=== PATIENT | male | born 1975 | race Caucasian/White ===

== ENCOUNTER → 2017-07-12 | Day surgery (SDC) | payer BC ==
[2017-06-28 15:29] VITALS: Ht 175.3 cm; Wt 78.6 kg
[~2017-07-12] VITALS: Ht 175.3 cm; Wt 78.6 kg
[~2017-07-12] MED LIST: CALC600T9 PO; LIDOCAINE HCL 2% 2 ML VIAL (20MG/ML) ONE; METHYLENE BLUE 0.5% 10 ML VIAL ONE; MIDAZOLAM HCL 1 MG/ML 2ML VIAL ONE; PRED-301 PO; PRLSR20 PO; PROP10TA7 PO; PROPOFOL IV EMULSION 10 MG/ML 20 ML VIAL IV ONE; SODIUM CHLORIDE 0.9% 500ML 500 ML IV ONE; VEDO1INJ IV
[2017-07-12 13:52] VITALS: TEMP 37
--- NOTE | 2017-07-12 14:25 | Endo History and Physical ---
History & Physical Date of Service: Jul 12, 2017. Chief Complaint: COLON POLYPS, W/EMR Referring Physician: DR. 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 Past Surgical History Hx Cardiac Surgery: No Hx Internal Defibrillator: No Hx Pacemaker: No Hx Abdominal Surgery: No Hx of Implantable Prosthesis: No Hx Post-Op Nausea and Vomiting: No Hx Cancer Surgery: No Hx Thoracic Surgery: Yes (BRONCHOSCOPY) Hx Orthopedic: Yes (RT HAND PINKY FINGER WITH PIN) Hx Urinary Tract Surgery: No Family History None Social History Smoking Status: Former Smoker Hx Substance Use: No Hx Alcohol Use: Yes (2-4 DRINKS 4-5 DAYS/WEEK (ONLY 3 DRINKS SINCE )) Allergies Coded Allergies: No Known Allergies (Verified , 07/12/17) Current Medications Reported Home Medications Medications Dose Route/Sig Max Daily Dose Days Date Category Inderal (Propranolol HCl) 10 Mg Tab 10 Mg PO BID 06/28/17 Reported Prilosec (Omeprazole) 20 Mg Capcr 20 Mg PO BID 06/28/17 Reported Prednisone 5 Mg Tab 5 Mg PO QAM 06/28/17 Reported Calcium + D (Calcium Carbonate-Vitamin D) 1 Tab Tab 1 Tab PO QPM 06/28/17 Reported Calcium + D (Calcium Carbonate-Vitamin D) 1 Tab Tab 2 Tabs PO QAM 06/28/17 Reported Entyvio (Vedolizumab) 300 Mg Inj 1 Dose IV Q8WK 06/28/17 Reported Vital Signs Weight (Kilograms): 78.64 Height (Feet): 5 Height (Inches): 9 Date Time Temp Pulse Resp B/P (MAP) Pulse Ox O2 Delivery O2 Flow Rate FiO2 07/12/17 13:52 37.0 72 18 128/77 (94) 96 Room Air Physical Exam General Appearance: WD/WN, no apparent distress Respiratory/Chest: Auscultation: breath sounds normal Cardiovascular: Heart Auscultation: RRR Abdomen: Bowel Sounds: normal Inspection & Palpation: soft, non-distended, no tenderness, guarding & rebound colonscopy with possible EMR risks benefits and alternatives discussed with patient. Risk approximately 1: 500 for bleeding perforation alfredo Assessment and Plan colonscopy - possible EMR
--- NOTE | 2017-07-12 15:25 | Discharge Instructions ---
Endoscopy Patient Instructions Date / Procedure(s) Performed Jul 12, 2017. Colonoscopy Allergy Information Coded Allergies: No Known Allergies (Verified , 07/12/17) Discharge Date / Findings Jul 12, 2017. EMR on descending colon polyp other polyps were removed Medication Instructions Restart Stopped Medication(s): Reported Home Medications Medications Dose Route/Sig Max Daily Dose Days Date Category Inderal (Propranolol HCl) 10 Mg Tab 10 Mg PO BID 06/28/17 Reported Prilosec (Omeprazole) 20 Mg Capcr 20 Mg PO BID 06/28/17 Reported Prednisone 5 Mg Tab 5 Mg PO QAM 06/28/17 Reported Calcium + D (Calcium Carbonate-Vitamin D) 1 Tab Tab 1 Tab PO QPM 06/28/17 Reported Calcium + D (Calcium Carbonate-Vitamin D) 1 Tab Tab 2 Tabs PO QAM 06/28/17 Reported Entyvio (Vedolizumab) 300 Mg Inj 1 Dose IV Q8WK 06/28/17 Reported Reported Home Medications Medications Dose Route/Sig Max Daily Dose Days Date Category Inderal (Propranolol HCl) 10 Mg Tab 10 Mg PO BID 06/28/17 Reported Prilosec (Omeprazole) 20 Mg Capcr 20 Mg PO BID 06/28/17 Reported Prednisone 5 Mg Tab 5 Mg PO QAM 06/28/17 Reported Calcium + D (Calcium Carbonate-Vitamin D) 1 Tab Tab 1 Tab PO QPM 06/28/17 Reported Calcium + D (Calcium Carbonate-Vitamin D) 1 Tab Tab 2 Tabs PO QAM 06/28/17 Reported Entyvio (Vedolizumab) 300 Mg Inj 1 Dose IV Q8WK 06/28/17 Reported Provider Instructions Activity Restrictions - No exercising or heavy lifting for 24 hours. - Do not drink alcohol the day of the procedure. - Do not drive a car or operate machinery until the day after the procedure. - Do not make any important decisions or sign important papers in 24 hours after the procedure. Following Day: - Return to full activity which may include returning to work/school. Diet Start your diet with liquids and light foods (jello, soup, juice, toast). Then eat your usual diet if not nauseated. Treatment For Common After Affects For mild abdominal pain, bloating, or excessive gas: - Rest - Eat lightly - Lie on right side Follow-Up Information Follow-up with DR. FONSECA as scheduled Anesthesia Information What You Should Know You have had a procedure that required some medicine to reduce anxiety and discomfort. This treatment is called moderate sedation. After receiving the treatment, you may be sleepy, but you will be able to breathe on your own. The effects of the treatment may last for several hours. Follow these instructions along with Activity/Diet recommendations noted above: * Do NOT do anything where dizziness or clumsiness would be dangerous. * Rest quietly at home today, then you can be up and about tomorrow. * Have a responsible person stay with you the rest of today. * You may have had an I.V. today. If so, you may take the dressing off later today. Recommendations Call your doctor if: * Trouble breathing * Continuous vomiting for more than 24 hours * Temperature above 101 degrees * Severe abdominal pain or bloating * Pain not relieved by pain medicine ordered * There is increased drainage or redness from any incision * A large amount of rectal bleeding greater than 2-3 tablespoons. (If you had a polyp/s removed or have hemorrhoids, a small amount of blood - from the rectum is to be expected.) * You have any unanswered questions or concerns. IN THE EVENT OF A SERIOUS EMERGENCY, GO TO THE NEAREST EMERGENCY ROOM Your discharge instructions were prepared by provider Francis Gonzales. Patient Instructions Signature Page Faustino Mann Patient (or Guardian) Signature/Date: I have read and understand the instructions given to me by my caregivers. Caregiver/RN/Doctor Signature/Date: The above-named patient and/or guardian has received patient instructions on this date. + Original Patient Signature Page (only) stays with chart. Please make copy for patient.
--- NOTE | 2017-07-12 15:38 | Anesthesiology Progress Note ---
Anesthesia Post Op Note Date & Time Jul 12, 2017 at 15:38 Vital Signs Pain Intensity: 0 Vital Signs Past 12 Hours Date Time Temp Pulse Resp B/P (MAP) Pulse Ox O2 Delivery O2 Flow Rate FiO2 07/12/17 15:35 58 16 110/76 (87) 97 Room Air 07/12/17 15:20 66 14 110/69 (83) 97 Room Air 07/12/17 13:52 37.0 72 18 128/77 (94) 96 Room Air Notes Mental Status: alert / awake / arousable, participated in evaluation Pt Amnestic to Procedure: Yes Nausea / Vomiting: adequately controlled Pain: adequately controlled Airway Patency, RR, SpO2: stable & adequate BP & HR: stable & adequate Hydration State: stable & adequate Anesthetic Complications: no major complications apparent
--- NOTE | 2017-07-12 15:47 | GI REPORT ---
Procedure Date: 07/12/2017 2:34 PM Procedure: Colonoscopy Indications: Therapeutic procedure for colon polyps Medicines: Propofol per Anesthesia Complications: No immediate complications. Estimated blood loss: Minimal. Estimated Blood Loss: Estimated blood loss was minimal. Procedure: Pre-Anesthesia Assessment: - Prior to the procedure, a History and Physical was performed, and patient medications and allergies were reviewed. The patient's tolerance of previous anesthesia was also reviewed. The risks and benefits of the procedure and the sedation options and risks were discussed with the patient. All questions were answered, and informed consent was obtained. Prior Anticoagulants: The patient has taken no previous anticoagulant or antiplatelet agents. ASA Grade Assessment: III - A patient with severe systemic disease. After reviewing the risks and benefits, the patient was deemed in satisfactory condition to undergo the procedure. After I obtained informed consent, the scope was passed under direct vision. Throughout the procedure, the patient's blood pressure, pulse, and oxygen saturations were monitored continuously. The scope was introduced through the anus and advanced to the terminal ileum, with identification of the appendiceal orifice and IC valve. The colonoscopy was performed without difficulty. The patient tolerated the procedure well. The quality of the bowel preparation was good. Findings: The perianal and digital rectal examinations were normal. Pertinent negatives include normal sphincter tone, no palpable rectal lesions and no anal lesion or abnormality was detected. A 15 mm polyp was found at 40 cm proximal to the anus. The polyp was sessile. Area was successfully injected with 8 mL saline with methylene blue for a lift polypectomy. To prevent bleeding after mucosal resection, two hemostatic clips were successfully placed (MR conditional). There was no bleeding during, and at the end, of the procedure. The polyp was removed with a hot snare. Resection and retrieval were complete. Verification of patient identification for the specimen was done by the physician and insulator technician using the patient's name and medical record number. A 4 mm polyp was found at the hepatic flexure. The polyp was sessile. The polyp was removed with a cold biopsy forceps. Resection and retrieval were complete. Estimated blood loss was minimal. Verification of patient identification for the specimen was done by the physician and insulator technician using the patient's name and medical record number. Three sessile polyps were found in the cecum. The polyps were 1 to 2 mm in size. These polyps were removed with a cold biopsy forceps. Resection and retrieval were complete. Estimated blood loss was minimal. Verification of patient identification for the specimen was done by the physician and insulator technician using the patient's name and medical record number. A mucosal pattern c/w IBD mucosal scarring scar was found in the entire colon. Impression: - One 15 mm polyp at 40 cm proximal to the anus, removed with a hot snare. Resected and retrieved. Injected. Clips (MR conditional) were placed. - One 4 mm polyp at the hepatic flexure, removed with a cold biopsy forceps. Resected and retrieved. - Three 1 to 2 mm polyps in the cecum, removed with a cold biopsy forceps. Resected and retrieved. - Scar in the entire examined colon. Recommendation: - Discharge patient to home (ambulatory). - Advance diet as tolerated. - Continue present medications. - Await pathology results. - Repeat colonoscopy for surveillance based on pathology results. - Return to GI clinic as previously scheduled. MD Francis Davis MD 07/12/2017 3:46:38 PM This report has been signed electronically. Note Initiated On: 07/12/2017 2:34 PM I attest to the content of the Intraoperative Record and orders documented therein, exceptions below
[2017-07-12 15:50] VITALS: BP 124/74; PULSE 64; O2SAT 96
== END | disposition home or self-care (01) ==
LOC: C.GI 13:05
PROVIDERS: ATTEND Internal Medicine Gastroenterology
DX: K62.0 Anal polyp (principal); D12.0 Benign neoplasm of cecum; D12.3 Benign neoplasm of transverse colon; Z86.010 Personal history of colon polyps; Z87.891 Personal history of nicotine dependence; Z79.899 Other long term (current) drug therapy